=== PATIENT | female | born 1960 | race Hispanic/Latino ===

== ENCOUNTER 2018-09-20 13:57 | Emergency (ER) | payer OTHER, SELFPAY ==
[2018-09-20 14:41] LABS: Actual Bicarbonate (HCO3a) 25.9 mEq/L (22-28); Analyzer IN Cardio ER; Base Excess (BEa) 2.4 mEq/L (-2.0 to +3.0); CO2 Tension 36.4 mmHg (35.0-45.0); Calcium, Ionized 1.27 mmol/L (1.12-1.30); Carboxyhemoglobin (COHb) 2.3 gm% (0.0-3.0); O2 Tension (PaO2) 69.3 mmHg (80.0-100.0); Potassium - ABG Lab 3.67 mmol/L (3.70-5.30); pH, Arterial 7.47 (7.35-7.45)
[2018-09-20 14:46] LABS: Puncture Site LBA
[2018-09-20] MEDS ORDERED: methylPREDNISolone Sod Succ/PF 125 MG/2 ML VIAL ONE (14:47)
[2018-09-20] MEDS ORDERED: Magnesium 2 GM/50 ML BAG (IN WATER) ONE (14:47)
[2018-09-20 14:58] LABS: #Eosinphils 0.1 thou/uL (0.0-0.7); #Lymphocytes 0.8 thou/uL (1.20-3.40); #Monocytes 0.4 thou/uL (0.11-0.59); #Neutrophils 3.4 thou/uL (1.40-6.50); %Basophils 0.7 % (0.0-1.0); %Eosinophils 1.9 % (0.0-10.0); %Lymphocytes 16.2 % (21.0-51.0); %Monocytes 8.4 % (0.0-10.0); %Neutrophils 72.7 % (42.0-75.0); Hemoglobin 12.8 g/dL (12.0-16.0); Mean Corpuscular Hemoglobin 31.2 pg (27.0-31.0); Mean Corpuscular Volume 94.3 fL (78.0-98.0); Mean Platelet Volume 8.1 fL (7.4-10.4); Platelet Count 71 thou/uL (130-400); RBC Distribution Width 13.1 % (11.5-14.5); Red Blood Cell (RBC) Count 4.11 mill/uL (4.20-5.40); White Blood Cell (WBC) Count 4.7 thou/uL (4.8-10.8)
--- NOTE | 2018-09-20 15:12 | RAD ---
PORTABLE CHEST: Date: 09/20/18 COMPARISON: 07/17/16 study. HISTORY: Cough and nausea. FINDINGS: Heart size within normal limits. There are some chronic-appearing lung changes. They do not appear de finitely changed as compared to the prior examination. No confluent infiltrate. IMPRESSION: Chronic-appearing lung change. POS: [facility]
[2018-09-20 15:13] LABS: ALT (SGPT) 15 U/L (8-55); AST (SGOT) 41 U/L (5-34); Alkaline Phosphatase 138 U/L (40-150); Anion Gap 12 mmol/L (10-20); BUN (Urea Nitrogen) 8 mg/dL (9.8-20.1); Bilirubin, Total 1.1 mg/dL (0.2-1.2); CK (CPK) 75 U/L (29-168); Calc. Creatinine Clearance 0 mL/min (70-130); Calcium 9.8 mg/dL (7.8-10.44); Carbon Dioxide 23 mmol/L (22-29); Chloride 105 mmol/L (98-107); Estimated GFR-MDRD 66; Globulin 5.1 g/dL (2.4-3.5); Glucose 96 mg/dL (70-105); Potassium 3.5 mmol/L (3.5-5.1); Protein, Total 8.1 g/dL (6.0-8.3); Sodium 136 mmol/L (136-145)
[2018-09-20] MEDS ORDERED: Morphine 4 MG/ML VIAL ONE (15:17)
--- NOTE | 2018-09-20 15:54 | CT ---
CT OF ABDOMEN AND PELVIS PERFORMED WITH CONTRAST ENHANCEMENT: Date: 09/20/18 HISTORY: Abdominal pain. Suprapubic rash. Abdominal distention. COMPARISON: 07/17/16 study. FINDINGS: The lung bases show some increased interstitial changes similar to the prior examination that appear chronic. The liver has a nodular cirrhotic liver pattern. There is an exophytic slightly hypodense mass arisi ng from the dome of the liver, which was barely perceptible on the previous examination, but now cleo ures 2.2 cm. The second hypodense lesion also is seen along the liver margin on the prior exam. It me asured 1.5 cm in size. It is only a vague area of hypodense now and there appears to be some scarring of the surface of the liver in this area. This is seen on axial image 17. The spleen is markedly enlarged. It measures 19.0 cm in length. There are some varicosities in the re gion of the short gastrics. There is recanalization of the umbilical vein. The pancreas shows no mass . The gallbladder is somewhat contracted. There is moderate ascites noted. Right and left adrenal glands, and right and left kidneys are normal in appearance. No significant pe riaortic or mesenteric adenopathy. Once again, a vein is seen arising from the splenic vein, and then coursing into the pelvis. There is an enlarged fibromatous appearing uterus present. Moderate ascite s is seen. It is difficult to definitively identify the appendix, although I see a portion of what I believe to be a normal appendix. IMPRESSION: 1. Cirrhotic appearance to the liver with splenomegaly and evidence for portal hypertension with justin icosities and recanalization of the umbilical vein. There is moderate ascites noted associated with t his. In addition to the nodular cirrhotic appearance of the liver, there is now a slightly exophytic hypodense area measuring 2.2 cm in size in the dome of the liver with a vague area of decreased atten uation extending into the substance of the liver, new as compared to the prior examination. This coul d represent some type of regenerating nodule, but a hepatocellular carcinoma is not excluded. 2. Enlarged fibromatous appearing uterus. 3. Chronic lung change. POS: [facility]
[2018-09-20] MEDS ORDERED: Lidocaine 1% PF 5 ML VIAL ONE (15:55)
[2018-09-20] MEDS ORDERED: ISOVUE-370 76%-LOCM 1 ML ONE (16:53)
== END 2018-09-20 18:30 | disposition home or self-care (01) ==
LOC: ERS 13:57
DX: J44.1 Chronic obstructive pulmonary disease with (acute) exacerbation (principal); K74.60 Unspecified cirrhosis of liver; R16.2 Hepatomegaly with splenomegaly, not elsewhere classified; L02.211 Cutaneous abscess of abdominal wall; Z71.6 Tobacco abuse counseling; F17.210 Nicotine dependence, cigarettes, uncomplicated
CPT/HCPCS: 36415; 71045; 74177; 80053; 82550; 82805; 83605; 83880; 84484; 85025; 87040; 94640; 96361; 96365; 96366; 96375; 99406; J2001; J2270; J2930; J3475; J7620; Q9966

== ENCOUNTER 2020-10-25 10:15 | Inpatient (IN) | payer MEDICAID, SELFPAY ==
[2020-10-25 11:40] LABS: Hemoglobin 9.8 g/dL (12.0-16.0); Mean Corpuscular HGB CONC 31.6 g/dL (32.0-36.0); Mean Corpuscular Hemoglobin 29.8 pg (27.0-31.0); Mean Corpuscular Volume 94.4 fL (78.0-98.0); Mean Platelet Volume 8.4 fL (7.4-10.4); Platelet Count 104 thou/uL (130-400); RBC Distribution Width 16.3 % (11.5-14.5); Red Blood Cell (RBC) Count 3.29 mill/uL (4.20-5.40)
[2020-10-25 11:57] LABS: #Monocytes 1.3 thou/uL (0.11-0.59); #Neutrophils 8.7 thou/uL (1.40-6.50); %Basophils 0.1 % (0.0-1.0); %Eosinophils 0.3 % (0.0-10.0); %Lymphocytes 9.1 % (21.0-51.0); %Monocytes 11.6 % (0.0-10.0); Anisocytosis SLIGHT = 6-15 cells (100X) (0-5/hpf); Elliptocytes SLIGHT = 2-5 cells (100X) (0-1/hpf); Hypochromia SLIGHT = 6-15 cells (100X) (0-5/hpf); MDiff Complete? YES; Platelet Morphology Comment Appears Adequate; Polychromasia SLIGHT = 2-3 cells (100X) (0-2/hpf)
[2020-10-25 12:05] LABS: ALT (SGPT) 11 U/L (8-55); AST (SGOT) 42 U/L (5-34); Albumin 2.2 g/dL (3.5-5.0); Alkaline Phosphatase 105 U/L (40-110); Anion Gap 13 mmol/L (10-20); BUN (Urea Nitrogen) 28 mg/dL (9.8-20.1); Bilirubin, Total 2.2 mg/dL (0.2-1.2); Calc. Creatinine Clearance 0 mL/min (70-130); Calcium 8.2 mg/dL (7.8-10.44); Carbon Dioxide 20 mmol/L (22-29); Chloride 101 mmol/L (98-107); Glucose 135 mg/dL (70-105); Lipase 50 U/L (8-78); Potassium 4.3 mmol/L (3.5-5.1); Protein, Total 8.2 g/dL (6.0-8.3); Sodium 130 mmol/L (136-145)
[2020-10-25 12:23] LABS: INR-International Normal Ratio 1.5; PTT 34.6 sec (22.9-36.1); Prothrombin Time 18.7 sec (12.0-14.7)
[2020-10-25 13:15] LABS: Clarity Hazy (Clear); Specific Gravity, Urine 1.023 (1.002-1.036); pH, Urine 5.5 (5.0-9.0)
[2020-10-25 13:19] LABS: Bacteria/HPF 1+ HPF (None Seen); RBC/HPF 0-3 HPF (0-3)
[2020-10-25] MEDS ORDERED: Cefepime 2 GM VIAL ONE (14:12)
[2020-10-25] MEDS ORDERED: Morphine 2 MG/ML VIAL SLOW IVP SCH ×2 (15:15→22:30)
[2020-10-25 18:09] VITALS: BMI 34.7
[2020-10-25 18:16] LABS: Hemoglobin A1c 4.3 % (4.0-6.0)
[2020-10-25 18:26] LABS: Cardiac Risk 6.2 (Less than 4.5)
[2020-10-25 18:47] LABS: HBCM Index 0.14 S/CO (0-0.79); HBSAg Index 0.19 S/CO (0-0.99); Hep A IgM AB Non-Reactive (NonReactive); Hep A IgM S/CO 0.21 S/CO (0-0.79); Hep B Surf Ag Non-Reactive S/CO (NonReactive); Hepatitis B Core IgM Abs Non-Reactive (NonReactive)
[2020-10-25 18:55] LABS: Hep C IgG Ab Reflex HepC Qnt (NonReactive); Hep C Index 11.46 S/CO (0-0.79)
[2020-10-25] MEDS ORDERED: Pantoprazole 40 MG VIAL IVP SCH (21:00)
[2020-10-25] MEDS: Albumin 25% 25 GM/100 ML BOT IVPB SCH (21:38)
[2020-10-25] MEDS: Midodrine HCl 5 MG TAB PO SCH (21:38)
[2020-10-25 22:26] LABS: RBC Count-Automated (BF) Greater than 890000 /cu.mm; WBC/Nucleated-Auto (BF) 1670 uL
[2020-10-25 22:37] LABS: BF Color Red; Body Fluid Source Peritoneal Fluid; Clarity Cloudy/Turbid (Clear); Tube # EDTA
[2020-10-25 22:50] LABS: BF Segmented Neutrophils 41 %; Cell Count Non Hematic 45 %; Lymphocytes 14 %
[2020-10-26] MEDS ORDERED: Cefepime 2 GM in Sodium Chloride 0.9% 100 ML IVPB SCH (02:00)
[2020-10-26 02:38] LABS: SARS-CoV-2 PCR by NAA Not Detected (NotDetected)
[2020-10-26] MEDS: Albumin 25% 25 GM/100 ML BOT IVPB SCH ×3 (05:32→21:02)
[2020-10-26 07:03] LABS: #Lymphocytes 0.8 thou/uL (1.20-3.40); #Monocytes 0.9 thou/uL (0.11-0.59); #Neutrophils 6.7 thou/uL (1.40-6.50); %Basophils 0.4 % (0.0-1.0); %Eosinophils 0.4 % (0.0-10.0); %Lymphocytes 9.4 % (21.0-51.0); %Monocytes 10.5 % (0.0-10.0); %Neutrophils 79.4 % (42.0-75.0); Hemoglobin 9.3 g/dL (12.0-16.0); Mean Corpuscular HGB CONC 31.8 g/dL (32.0-36.0); Mean Corpuscular Hemoglobin 29.8 pg (27.0-31.0); Mean Corpuscular Volume 93.7 fL (78.0-98.0); Mean Platelet Volume 7.5 fL (7.4-10.4); Platelet Count 103 thou/uL (130-400); RBC Distribution Width 16.4 % (11.5-14.5); Red Blood Cell (RBC) Count 3.11 mill/uL (4.20-5.40); White Blood Cell (WBC) Count 8.4 thou/uL (4.8-10.8)
[2020-10-26 07:18] LABS: ALT (SGPT) 9 U/L (8-55); AST (SGOT) 30 U/L (5-34); Albumin 2.6 g/dL (3.5-5.0); Alkaline Phosphatase 94 U/L (40-110); Anion Gap 11 mmol/L (10-20); BUN (Urea Nitrogen) 29 mg/dL (9.8-20.1); Bilirubin, Total 2.2 mg/dL (0.2-1.2); Calc. Creatinine Clearance 61 mL/min (70-130); Calcium 8.8 mg/dL (7.8-10.44); Carbon Dioxide 22 mmol/L (22-29); Chloride 101 mmol/L (98-107); Globulin 5.7 g/dL (2.4-3.5); Glucose 98 mg/dL (70-105); Potassium 4.3 mmol/L (3.5-5.1); Protein, Total 8.3 g/dL (6.0-8.3); Sodium 130 mmol/L (136-145)
[2020-10-26] MEDS ORDERED: FLU VACC QS2020-21(6MOS UP)/PF 60 MCG/0.5 ML SYRINGE IM ONE (09:00)
[2020-10-26] MEDS: Midodrine HCl 5 MG TAB PO SCH ×3 (09:03→20:50)
[2020-10-26] MEDS ORDERED: Lidocaine 1% PF 5 ML VIAL ONE (09:13)
[2020-10-26] MEDS ORDERED: Sodium Bicarbonate 2.5 MEQ/5 ML VIAL ONE (09:13)
[2020-10-26] MEDS: cefTRIAXone\\ROCEPHIN 2 GM in Sodium Chloride 0.9% 100 ML IVPB SCH (11:41)
[2020-10-26] MEDS ORDERED: traMADol HCl 50 MG TAB PO SCH (12:30)
[2020-10-26] MEDS: traMADol HCl 50 MG TAB PO SCH (20:50)
[2020-10-27] MEDS: Morphine 2 MG/ML VIAL SLOW IVP PRN ×3 (05:36→22:13)
[2020-10-27 07:32] LABS: ALT (SGPT) 7 U/L (8-55); AST (SGOT) 25 U/L (5-34); Albumin 2.8 g/dL (3.5-5.0); Alkaline Phosphatase 76 U/L (40-110); Anion Gap 12 mmol/L (10-20); BUN (Urea Nitrogen) 26 mg/dL (9.8-20.1); Bilirubin, Total 2.1 mg/dL (0.2-1.2); Calc. Creatinine Clearance 83 mL/min (70-130); Calcium 8.8 mg/dL (7.8-10.44); Carbon Dioxide 22 mmol/L (22-29); Chloride 101 mmol/L (98-107); Globulin 4.6 g/dL (2.4-3.5); Glucose 103 mg/dL (70-105); Potassium 4.2 mmol/L (3.5-5.1); Protein, Total 7.4 g/dL (6.0-8.3); Sodium 131 mmol/L (136-145)
[2020-10-27 07:44] LABS: #Lymphocytes 0.7 thou/uL (1.20-3.40); #Neutrophils 5.3 thou/uL (1.40-6.50); %Eosinophils 0.5 % (0.0-10.0); %Lymphocytes 9.9 % (21.0-51.0); %Neutrophils 75.6 % (42.0-75.0); Hemoglobin 9.7 g/dL (12.0-16.0); MDiff Complete? YES; Mean Corpuscular HGB CONC 32.1 g/dL (32.0-36.0); Mean Corpuscular Hemoglobin 30.6 pg (27.0-31.0); Mean Corpuscular Volume 95.5 fL (78.0-98.0); Mean Platelet Volume 7.4 fL (7.4-10.4); Platelet Count 98 thou/uL (130-400); Platelet Morphology Comment Appears Decreased; Polychromasia SLIGHT = 2-3 cells (100X) (0-2/hpf); RBC Distribution Width 16.6 % (11.5-14.5); Red Blood Cell (RBC) Count 3.18 mill/uL (4.20-5.40)
[2020-10-27] MEDS: traMADol HCl 50 MG TAB PO SCH ×2 (09:32→20:36)
[2020-10-27] MEDS: Midodrine HCl 5 MG TAB PO SCH ×3 (09:32→20:36)
[2020-10-27] MEDS ORDERED: Azithromycin 500 MG in Sodium Chloride 0.9% 250 ML 250 ML IVPB SCH (10:15)
[2020-10-27] MEDS: cefTRIAXone\\ROCEPHIN 2 GM in Sodium Chloride 0.9% 100 ML IVPB SCH (10:19)
[2020-10-27] MEDS: Spironolactone 25 MG TAB PO SCH (17:42)
[2020-10-28] MEDS: Spironolactone 25 MG TAB PO SCH ×2 (09:34→16:18)
[2020-10-28] MEDS: Furosemide 20 MG TAB PO SCH (09:34)
[2020-10-28] MEDS: traMADol HCl 50 MG TAB PO SCH ×2 (09:35→21:06)
[2020-10-28] MEDS: Midodrine HCl 5 MG TAB PO SCH ×3 (09:35→19:53)
[2020-10-28] MEDS: cefTRIAXone\\ROCEPHIN 2 GM in Sodium Chloride 0.9% 100 ML IVPB SCH (09:36)
[2020-10-28] MEDS: Morphine 2 MG/ML VIAL SLOW IVP PRN ×2 (09:44→19:53)
[2020-10-28 12:37] LABS: HCV log10 5.967 (.); Hep C PCR-Quant 926000 IU/mL (.)
[2020-10-29] MEDS: Morphine 2 MG/ML VIAL SLOW IVP PRN ×2 (06:07→20:04)
[2020-10-29] MEDS: traMADol HCl 50 MG TAB PO SCH ×2 (08:00→22:21)
[2020-10-29] MEDS: Spironolactone 25 MG TAB PO SCH ×2 (08:01→16:07)
[2020-10-29] MEDS: Furosemide 20 MG TAB PO SCH (08:01)
[2020-10-29] MEDS: Midodrine HCl 5 MG TAB PO SCH ×3 (08:01→20:02)
[2020-10-29] MEDS: cefTRIAXone\\ROCEPHIN 2 GM in Sodium Chloride 0.9% 100 ML IVPB SCH (10:40)
[2020-10-29 11:51] LABS: #Eosinphils 0.1 thou/uL (0.0-0.7); #Lymphocytes 0.7 thou/uL (1.20-3.40); #Monocytes 1.2 thou/uL (0.11-0.59); %Eosinophils 1.5 % (0.0-10.0); %Lymphocytes 8.5 % (21.0-51.0); %Monocytes 14.7 % (0.0-10.0); %Neutrophils 75.3 % (42.0-75.0); Mean Corpuscular HGB CONC 31.2 g/dL (32.0-36.0); Mean Corpuscular Hemoglobin 29.9 pg (27.0-31.0); Mean Corpuscular Volume 95.7 fL (78.0-98.0); Mean Platelet Volume 8.1 fL (7.4-10.4); Platelet Count 105 thou/uL (130-400); RBC Distribution Width 16.6 % (11.5-14.5); Red Blood Cell (RBC) Count 3.34 mill/uL (4.20-5.40)
[2020-10-29] MEDS ORDERED: Spironolactone 25 MG TAB PO SCH (12:00)
[2020-10-29 12:09] LABS: Anion Gap 13 mmol/L (10-20); BUN (Urea Nitrogen) 24 mg/dL (9.8-20.1); Calc. Creatinine Clearance 75 mL/min (70-130); Calcium 8.9 mg/dL (7.8-10.44); Carbon Dioxide 24 mmol/L (22-29); Chloride 95 mmol/L (98-107); Glucose 106 mg/dL (70-105); Magnesium 1.9 mg/dL (1.6-2.6); Potassium 4.7 mmol/L (3.5-5.1); Sodium 127 mmol/L (136-145)
[2020-10-30] MEDS: Morphine 2 MG/ML VIAL SLOW IVP PRN ×3 (06:28→20:14)
[2020-10-30] MEDS ORDERED: Albumin 25% 25 GM/100 ML BOT IVPB SCH (07:40)
[2020-10-30 07:43] LABS: Anion Gap 14 mmol/L (10-20); BUN (Urea Nitrogen) 26 mg/dL (9.8-20.1); Calc. Creatinine Clearance 77 mL/min (70-130); Calcium 8.8 mg/dL (7.8-10.44); Carbon Dioxide 23 mmol/L (22-29); Chloride 96 mmol/L (98-107); Glucose 82 mg/dL (70-105); Sodium 127 mmol/L (136-145)
[2020-10-30] MEDS ORDERED: Furosemide 20 MG/2 ML VIAL SLOW IVP SCH ×2 (08:15→15:00)
[2020-10-30] MEDS ORDERED: Lidocaine 1% PF 5 ML VIAL ONE (08:15)
[2020-10-30] MEDS: Spironolactone 25 MG TAB PO SCH (08:23)
[2020-10-30] MEDS: traMADol HCl 50 MG TAB PO SCH (08:25)
[2020-10-30] MEDS: Furosemide 20 MG TAB PO SCH (08:25)
[2020-10-30] MEDS: Midodrine HCl 5 MG TAB PO SCH ×3 (08:25→20:12)
[2020-10-30] MEDS: cefTRIAXone\\ROCEPHIN 2 GM in Sodium Chloride 0.9% 100 ML IVPB SCH (11:50)
[2020-10-30 12:58] LABS: Anion Gap 14 mmol/L (10-20); BUN (Urea Nitrogen) 26 mg/dL (9.8-20.1); Calc. Creatinine Clearance 79 mL/min (70-130); Calcium 9.1 mg/dL (7.8-10.44); Carbon Dioxide 24 mmol/L (22-29); Chloride 95 mmol/L (98-107); Glucose 91 mg/dL (70-105); Potassium 5.2 mmol/L (3.5-5.1); Sodium 128 mmol/L (136-145)
[2020-10-31] MEDS: Morphine 2 MG/ML VIAL SLOW IVP PRN ×3 (05:37→23:06)
[2020-10-31 06:58] LABS: Hemoglobin 10.1 g/dL (12.0-16.0); Mean Corpuscular HGB CONC 31.1 g/dL (32.0-36.0); Mean Corpuscular Hemoglobin 29.7 pg (27.0-31.0); Mean Corpuscular Volume 95.4 fL (78.0-98.0); Mean Platelet Volume 7.2 fL (7.4-10.4); Platelet Count 123 thou/uL (130-400); RBC Distribution Width 16.7 % (11.5-14.5); Red Blood Cell (RBC) Count 3.39 mill/uL (4.20-5.40); White Blood Cell (WBC) Count 9.9 thou/uL (4.8-10.8)
[2020-10-31 07:16] LABS: Anion Gap 12 mmol/L (10-20); BUN (Urea Nitrogen) 28 mg/dL (9.8-20.1); Calc. Creatinine Clearance 63 mL/min (70-130); Calcium 8.7 mg/dL (7.8-10.44); Carbon Dioxide 27 mmol/L (22-29); Chloride 96 mmol/L (98-107); Glucose 106 mg/dL (70-105); Magnesium 1.9 mg/dL (1.6-2.6); Potassium 4.7 mmol/L (3.5-5.1); Sodium 130 mmol/L (136-145)
[2020-10-31] MEDS: Midodrine HCl 5 MG TAB PO SCH ×3 (08:04→20:55)
[2020-10-31 08:22] LABS: Band 1 % (5-11); Hypochromia SLIGHT = 6-15 cells (100X) (0-5/hpf); Lymphocytes 6 % (21-51); MDiff Complete? YES; Metamyelocyte 1 % (0-0); Monocytes 17 % (0-10); Neutrophil 74 % (42-75); Platelet Morphology Comment Appears Decreased; Polychromasia MODERATE = 3-4 cells (100X) (0-2/hpf); Reactive Lymphocytes 1 % (0-10)
[2020-10-31] MEDS ORDERED: Furosemide 40 MG TAB PO SCH (09:00)
[2020-10-31] MEDS: cefTRIAXone\\ROCEPHIN 2 GM in Sodium Chloride 0.9% 100 ML IVPB SCH (10:33)
[2020-10-31] MEDS ORDERED: Spironolactone 25 MG TAB PO SCH ×2 (12:45→17:00)
[2020-10-31] MEDS ORDERED: Morphine 2 MG/ML VIAL SLOW IVP PRN (22:43)
[2020-10-31] MEDS ORDERED: Lorazepam 2 MG/ML VIAL SLOW IVP PRN (23:43)
[2020-10-31] MEDS ORDERED: Lorazepam 2 MG/ML VIAL SLOW IVP SCH (23:59)
[2020-11-01] MEDS: Morphine 2 MG/ML VIAL SLOW IVP PRN (05:43)
[2020-11-01] MEDS: Furosemide 20 MG TAB PO SCH (08:41)
[2020-11-01] MEDS: Spironolactone 25 MG TAB PO SCH (08:42)
[2020-11-01] MEDS: Midodrine HCl 5 MG TAB PO SCH ×3 (08:42→21:05)
[2020-11-01] MEDS ORDERED: Morphine 2 MG/ML VIAL SLOW IVP SCH (09:00)
[2020-11-01] MEDS: Morphine ER 15 MG TAB PO SCH ×2 (09:41→21:10)
[2020-11-01] MEDS: cefTRIAXone\\ROCEPHIN 2 GM in Sodium Chloride 0.9% 100 ML IVPB SCH (09:42)
[2020-11-01] MEDS ORDERED: Morphine ER 15 MG TAB PO SCH (21:00)
[2020-11-02] MEDS: Lorazepam 0.5 MG TAB PO PRN (01:57)
[2020-11-02 06:24] LABS: Hemoglobin 10.1 g/dL (12.0-16.0); Mean Corpuscular HGB CONC 30.3 g/dL (32.0-36.0); Mean Corpuscular Hemoglobin 28.8 pg (27.0-31.0); Mean Corpuscular Volume 95.3 fL (78.0-98.0); Mean Platelet Volume 7.1 fL (7.4-10.4); Platelet Count 139 thou/uL (130-400); RBC Distribution Width 16.4 % (11.5-14.5); White Blood Cell (WBC) Count 13.3 thou/uL (4.8-10.8)
[2020-11-02 06:35] LABS: Anion Gap 14 mmol/L (10-20); BUN (Urea Nitrogen) 40 mg/dL (9.8-20.1); Calc. Creatinine Clearance 41 mL/min (70-130); Calcium 8.9 mg/dL (7.8-10.44); Carbon Dioxide 22 mmol/L (22-29); Chloride 97 mmol/L (98-107); Glucose 96 mg/dL (70-105); Magnesium 2.1 mg/dL (1.6-2.6); Potassium 5.8 mmol/L (3.5-5.1); Sodium 127 mmol/L (136-145)
[2020-11-02 06:47] LABS: Band 9 % (5-11); Lymphocytes 5 % (21-51); MDiff Complete? YES; Monocytes 7 % (0-10); Neutrophil 79 % (42-75)
[2020-11-02] MEDS: Morphine 2 MG/ML VIAL SLOW IVP PRN (08:33)
[2020-11-02] MEDS: cefTRIAXone\\ROCEPHIN 2 GM in Sodium Chloride 0.9% 100 ML IVPB SCH (09:36)
[2020-11-02] MEDS ORDERED: Sodium Chloride 0.9% 500 ML IV SCH (10:30)
[2020-11-02] MEDS: Morphine ER 15 MG TAB PO SCH ×2 (10:52→21:30)
[2020-11-02] MEDS: Midodrine HCl 5 MG TAB PO SCH ×3 (10:52→21:30)
[2020-11-02] MEDS: Furosemide 20 MG TAB PO SCH (10:52)
[2020-11-02] MEDS: Spironolactone 25 MG TAB PO SCH (10:52)
[2020-11-03] MEDS: Morphine 2 MG/ML VIAL SLOW IVP PRN ×2 (00:16→11:33)
[2020-11-03] MEDS: Lorazepam 0.5 MG TAB PO PRN (04:35)
[2020-11-03] MEDS: Morphine ER 15 MG TAB PO SCH (09:00)
[2020-11-03] MEDS: Midodrine HCl 5 MG TAB PO SCH (09:01)
[2020-11-03] MEDS: Spironolactone 25 MG TAB PO SCH (09:01)
[2020-11-03] MEDS: Furosemide 20 MG TAB PO SCH (09:01)
[2020-11-03 11:47] VITALS: BP 123/74; TEMP 97.3
== END 2020-11-03 12:50 | disposition hospice, home (50) | DRG 432 ==
LOC: ERS 10:15 → INTOOBSV 14:15 → T4-A 14:15 → OBSVTOIN 10-26 14:05
PROVIDERS: ADMIT Family Medicine; ATTEND Family Medicine
PROC: 0W9G3ZZ Drainage of Peritoneal Cavity, Percutaneous Approach (ICD-10-PCS; principal; 2020-10-26)
PROC: 0W9G3ZZ Drainage of Peritoneal Cavity, Percutaneous Approach (ICD-10-PCS; 2020-10-30)
DX: K70.31 Alcoholic cirrhosis of liver with ascites (principal); K65.2 Spontaneous bacterial peritonitis; N17.9 Acute kidney failure, unspecified; Z20.822 Contact with and (suspected) exposure to COVID-19; E87.1 Hypo-osmolality and hyponatremia; K92.1 Melena; C22.0 Liver cell carcinoma; D69.6 Thrombocytopenia, unspecified; D64.9 Anemia, unspecified; I45.81 Long QT syndrome; R73.9 Hyperglycemia, unspecified; B19.20 Unspecified viral hepatitis C without hepatic coma; F17.210 Nicotine dependence, cigarettes, uncomplicated; Z86.19 Personal history of other infectious and parasitic diseases
CPT/HCPCS: 36415; 36416; 49083; 71045; 74176; 80048; 80053; 80061; 80074; 81003; 82042; 82105; 82140; 83036; 83605; 83690; 83735; 83930; 83935; 84145; 84300; 85025; 85060; 85610; 85730; 87040; 87070; 87086; 87205; 87522; 87635; 89051; 90471; 90662; 90732; 93005; 93010; 96365; 96367; 96375; 96376; C9113; G0008; G0009; G0378; J0692; J0696; J1940; J2060; J2270; J3490; P9047; U0003; U0005